=== PATIENT | male | born 1985 | race Caucasian/White ===

== ENCOUNTER 2017-01-19 18:54 | Emergency (ER) | payer OTHER ==
[~2017-01-19] VITALS: Ht 182.8 cm; Wt 163.3 kg
[~2017-01-19 18:54] MED LIST: CIPROFLOXACIN500 MG PO; CLINDAMYCIN HC300 MG PO; CYCLOBENZAPRINE10 MG PO; DAYPRO600 M1 PO; K-DUR 20MEQ20 MEQ PO; LISINOPRIL10 M1 PO; LOPRESSOR100 MG PO; METOPROLOL100 MG PO; MOTRIN800 MG PO; Motrin,Rufen800 MG PO; NAPROSYN500 MG PO; NORCO 5-325 TA1 EACH PO; ROBAXIN750 MG PO; WATER PILL
[2017-01-19] MEDS ORDERED: CLINDAMYCIN HC300 MG PO (20:28)
[2017-01-19] MEDS ORDERED: Motrin,Rufen800 MG PO (20:28)
== END 2017-01-19 22:10 | disposition home or self-care (01) ==
LOC: ED 18:54
DX: K02.9 Dental caries, unspecified (principal); K04.01 Reversible pulpitis; F17.200 Nicotine dependence, unspecified, uncomplicated; I10 Essential (primary) hypertension; Z79.899 Other long term (current) drug therapy

== ENCOUNTER 2017-06-01 20:29 | Emergency (ER) | payer OTHER ==
[~2017-06-01] VITALS: Ht 182.8 cm; Wt 145.1 kg
[2017-06-01 21:40] LABS: BILIRUBIN 2+ (NEGATIVE); BLOOD TRACE-LYSED (NEGATIVE); CLARITY SL CLOUDY (CLEAR); COLOR YELLOW (YELLOW); GLUCOSE NEGATIVE (NEGATIVE); KETONE 1+ (NEGATIVE); LEUKO ESTERASE TRACE (NEGATIVE); NITRITE NEGATIVE (NEGATIVE); UROBILINOGEN 0.2 E.U./dl (0.2-1.0)
[2017-06-01 21:47] LABS: URINE AMPHETAMINES < 1000 (1000ng/ml); URINE BARBITURATES < 200 (200ng/ml); URINE BENZODIAZEPINES < 200 (200ng/ml); URINE CANNABINOIDS (THC) < 50 (50ng/ml); URINE COCAINE < 300 (300ng/ml); URINE METHADONE < 300 (300ng/ml); URINE OPIATES < 300 (300ng/ml)
[2017-06-01 21:49] LABS: URINE PHENCYCLIDINE < 25 (25ng/ml)
[2017-06-01 21:53] LABS: BACTERIA 2+; EPITHELIAL CELLS 0-2; MUCOUS TRACE; RBC 0-2 rbc/hpf (0-2)
[2017-06-01 22:05] LABS: BASO # 0.1 10*3/uL (0.0-0.1); BASO % 0.3 % (0.0-1.0); HEMATOCRIT 48.8 % (42.0-52.0); HEMOGLOBIN 16.9 g/dl (14.0-18.0); LYMPH % 10.2 % (27.0-41.0); MEAN CELL VOLUME 91.4 fl (80.0-94.0); MEAN CORPUSCULAR HGB 31.6 pg (27.0-31.0); MEAN CORPUSCULAR HGB CONC 34.6 g/dl (33.0-37.0); MEAN PLATELET VOLUME 9.4 fl (9.6-12.3); MONO # 1.1 10*3/uL (0.1-1.0); MONO % 5.7 % (3.0-9.0); NEUT # 16.2 10*3/uL (2.3-7.9); NEUT % 83.4 % (47.0-73.0); PLATELET COUNT AUTOMATED 358 10*3/uL (130-400); RED BLOOD COUNT 5.34 10*6/uL (4.50-5.90); RED CELL DISTRI WIDTH 13.4 % (0-14.5); WHITE BLOOD COUNT 19.4 10*3/uL (4.8-10.8)
[2017-06-01 22:21] LABS: ALBUMIN 4.4 gm/dl (3.1-4.5); ALKALINE PHOSPHATASE 70 U/L (45-117); BUN 14 mg/dl (7-24); CHLORIDE 103 mmol/L (98-107); CREATININE 1.12 mg/dL (0.70-1.30); POTASSIUM 3.5 mmol/L (3.5-5.1); SGOT/AST 15 IU/L (3-35); SGPT/ALT 26 U/L (12-78); SODIUM 138 mmol/L (136-145); TOTAL PROTEIN 8.2 gm/dL (6.4-8.2)
[2017-06-01 22:29] LABS: ACETAMINOPHEN (TYLENOL) < 2.0 ug/ml (10-30); ETHYL ALCOHOL < 3.0 mg/dl (<3); THYROID STIM HORMONE (HS) 0.893 uIU/ml (0.358-4.75)
== END 2017-06-02 08:55 | disposition short-term general hospital (02) ==
LOC: ED 20:29
PROVIDERS: Emergency Medicine Emergency Medical Services
DX: R45.851 Suicidal ideations (principal); F17.200 Nicotine dependence, unspecified, uncomplicated; F41.9 Anxiety disorder, unspecified; R07.9 Chest pain, unspecified; I10 Essential (primary) hypertension; Z87.898 Personal history of other specified conditions

== ENCOUNTER 2017-11-04 12:47 | Emergency (ER) | payer MEDICAID ==
[~2017-11-04] VITALS: Ht 182.8 cm; Wt 140.6 kg
[2017-11-04 13:34] LABS: BILIRUBIN 2+ (NEGATIVE); BLOOD NEGATIVE (NEGATIVE); CLARITY CLEAR (CLEAR); COLOR YELLOW (YELLOW); GLUCOSE NEGATIVE (NEGATIVE); KETONE 1+ (NEGATIVE); LEUKO ESTERASE TRACE (NEGATIVE); NITRITE NEGATIVE (NEGATIVE); PH 5.5 (5.0-9.0); SPECIFIC GRAVITY 1.025 (1.005-1.030); UROBILINOGEN 0.2 E.U./dl (0.2-1.0)
[2017-11-04 13:36] LABS: URINE AMPHETAMINES < 1000 (1000ng/ml); URINE BARBITURATES < 200 (200ng/ml); URINE BENZODIAZEPINES < 200 (200ng/ml); URINE CANNABINOIDS (THC) < 50 (50ng/ml); URINE COCAINE < 300 (300ng/ml); URINE METHADONE < 300 (300ng/ml); URINE OPIATES < 300 (300ng/ml)
[2017-11-04 13:37] LABS: URINE PHENCYCLIDINE < 25 (25ng/ml)
[2017-11-04 13:37] LABS: BASO % 0.2 % (0.0-1.0); HEMATOCRIT 46.2 % (42.0-52.0); HEMOGLOBIN 15.9 g/dl (14.0-18.0); LYMPH # 1.2 10*3/uL (1.3-4.4); LYMPH % 13.4 % (27.0-41.0); MEAN CELL VOLUME 89.9 fl (80.0-94.0); MEAN CORPUSCULAR HGB 30.9 pg (27.0-31.0); MEAN CORPUSCULAR HGB CONC 34.4 g/dl (33.0-37.0); MEAN PLATELET VOLUME 9.3 fl (9.6-12.3); MONO # 0.6 10*3/uL (0.1-1.0); MONO % 6.3 % (3.0-9.0); NEUT % 79.8 % (47.0-73.0); PLATELET COUNT AUTOMATED 367 10*3/uL (130-400); RED BLOOD COUNT 5.14 10*6/uL (4.50-5.90); RED CELL DISTRI WIDTH 13.4 % (0-14.5); WHITE BLOOD COUNT 8.8 10*3/uL (4.8-10.8)
[2017-11-04 13:53] LABS: ACETAMINOPHEN (TYLENOL) < 2.0 ug/ml (10-30); BUN 23 mg/dl (7-24); CHLORIDE 104 mmol/L (98-107); CREATININE 1.39 mg/dL (0.70-1.30); ETHYL ALCOHOL < 3.0 mg/dl (<3); SODIUM 136 mmol/L (136-145)
[2017-11-04 14:00] LABS: RBC 0-2 rbc/hpf (0-2)
[2017-11-04 14:01] LABS: BACTERIA 2+; MUCOUS TRACE
[2017-11-04] MEDS ORDERED: ABILIFY20 MG PO (14:26)
[2017-11-04] MEDS ORDERED: WELLBUTRIN XL300 MG PO (14:26)
[2017-11-04] MEDS ORDERED: LISINOPRIL2.5 MG PO (14:26)
[2017-11-04] MEDS ORDERED: LEXAPRO20 MG PO (14:26)
[2017-11-04] MEDS ORDERED: NORVASC2.5 MG PO (14:27)
== END 2017-11-07 18:30 | disposition home health service (06) ==
LOC: ED 12:47
PROVIDERS: Emergency Medicine
DX: F32.9 Major depressive disorder, single episode, unspecified (principal); R45.851 Suicidal ideations; F41.9 Anxiety disorder, unspecified; F19.10 Other psychoactive substance abuse, uncomplicated; I10 Essential (primary) hypertension; Z79.899 Other long term (current) drug therapy

== ENCOUNTER 2017-12-28 19:06 | Emergency (ER) | payer MEDICAID ==
[~2017-12-28] VITALS: Ht 182.8 cm; Wt 145.1 kg
[~2017-12-28 19:06] MED LIST changes: +ABILIFY20 MG PO; +LEXAPRO20 MG PO; +LISINOPRIL2.5 MG PO; +NORVASC2.5 MG PO; +WELLBUTRIN XL300 MG PO
[2017-12-28] MEDS ORDERED: VIBRAMYCIN100 MG PO (19:55)
[2017-12-28] MEDS ORDERED: PREDNISONE20 M1 PO (19:55)
== END 2017-12-28 19:50 | disposition home or self-care (01) ==
LOC: ED 19:06
DX: S90.862A Insect bite (nonvenomous), left foot, initial encounter (principal); L08.9 Local infection of the skin and subcutaneous tissue, unspecified; Z79.899 Other long term (current) drug therapy; W57.XXXA Bitten or stung by nonvenomous insect and other nonvenomous arthropods, initial encounter; Y93.89 Activity, other specified; Y92.89 Other specified places as the place of occurrence of the external cause; Y99.8 Other external cause status

== ENCOUNTER → 2018-05-13 | Outpatient (CLI) | payer OTHER ==
[~2018-05-13] MED LIST changes: +PREDNISONE20 M1 PO; +VIBRAMYCIN100 MG PO
== END | disposition home or self-care (01) ==
LOC: RAD 11:52
DX: R06.02 Shortness of breath (principal); M79.89 Other specified soft tissue disorders

== ENCOUNTER 2019-10-07 10:33 | Emergency (ER) | payer OTHER ==
[~2019-10-07] VITALS: Ht 182.8 cm; Wt 181.4 kg
[2019-10-07 11:29] LABS: BASO % 0.3 % (0.0-1.0); EOS # 0.1 10*3/uL (0.0-0.4); EOS % 0.6 % (1.0-4.0); LYMPH # 1.6 10*3/uL (1.3-4.4); MEAN CORPUSCULAR HGB 31.4 pg (27.0-31.0); MEAN CORPUSCULAR HGB CONC 33.1 g/dl (33.0-37.0); MEAN PLATELET VOLUME 9.3 fl (9.6-12.3); MONO # 0.8 10*3/uL (0.1-1.0); MONO % 5.8 % (3.0-9.0); NEUT % 80.9 % (47.0-73.0); PLATELET COUNT AUTOMATED 303 10*3/uL (130-400); RED BLOOD COUNT 4.42 10*6/uL (4.50-5.90); RED CELL DISTRI WIDTH 13.5 % (0-14.5); WHITE BLOOD COUNT 13.6 10*3/uL (4.8-10.8)
[2019-10-07 11:45] LABS: ALBUMIN 3.3 gm/dl (3.1-4.5); ALKALINE PHOSPHATASE 64 U/L (45-117); BUN 19 mg/dl (7-24); CHLORIDE 106 mmol/L (98-107); CREATININE 0.93 mg/dL (0.70-1.30); POTASSIUM 4.2 mmol/L (3.5-5.1); SGOT/AST 13 IU/L (3-35); SGPT/ALT 27 U/L (12-78); SODIUM 138 mmol/L (136-145)
[2019-10-07] MEDS ORDERED: PREDNISONE20 M1 PO (12:57)
== END 2019-10-07 12:51 | disposition left against medical advice (07) ==
LOC: ED 10:33
PROVIDERS: Physician Assistant
DX: T78.3XXA Angioneurotic edema, initial encounter (principal); I10 Essential (primary) hypertension; F41.9 Anxiety disorder, unspecified; F32.9 Major depressive disorder, single episode, unspecified; F17.200 Nicotine dependence, unspecified, uncomplicated; Z79.899 Other long term (current) drug therapy; X58.XXXA Exposure to other specified factors, initial encounter; Y93.89 Activity, other specified; Y92.89 Other specified places as the place of occurrence of the external cause; Y99.8 Other external cause status

== ENCOUNTER → 2020-05-07 | Outpatient (CLI) | payer OTHER ==
[2020-05-07 09:29] LABS: BASO # 0.1 10*3/uL (0.0-0.1); BASO % 0.5 % (0.0-1.0); EOS % 0.3 % (1.0-4.0); HEMATOCRIT 43.9 % (42.0-52.0); LYMPH # 2.7 10*3/uL (1.3-4.4); MEAN PLATELET VOLUME 9.2 fl (9.6-12.3); MONO # 0.7 10*3/uL (0.1-1.0); NEUT # 8.4 10*3/uL (2.3-7.9); NEUT % 69.9 % (47.0-73.0); PLATELET COUNT AUTOMATED 318 10*3/uL (130-400); RED BLOOD COUNT 4.67 10*6/uL (4.50-5.90); RED CELL DISTRI WIDTH 13.4 % (0-14.5); WHITE BLOOD COUNT 11.9 10*3/uL (4.8-10.8)
[2020-05-07 10:00] LABS: ALBUMIN 3.5 gm/dl (3.1-4.5); CHLORIDE 105 mmol/L (98-107); POTASSIUM 4.2 mmol/L (3.5-5.1); SODIUM 138 mmol/L (136-145)
[2020-05-07 10:07] LABS: ALKALINE PHOSPHATASE 69 U/L (45-117); BUN 18 mg/dl (7-24); CHOLESTEROL 171 mg/dL (<200); HDL CHOLESTEROL 25 mg/dl (40-60); SGOT/AST 17 IU/L (3-35); SGPT/ALT 30 U/L (12-78); TOTAL PROTEIN 7.5 gm/dL (6.4-8.2); TRIGLYCERIDES 759 mg/dl (<150)
== END | disposition home or self-care (01) ==
LOC: LAB 09:13
PROVIDERS: ATTEND Nurse Practitioner Family
DX: M25.461 Effusion, right knee (principal); I10 Essential (primary) hypertension; M79.89 Other specified soft tissue disorders; E78.1 Pure hyperglyceridemia; Z13.21 Encounter for screening for nutritional disorder; Z13.228 Encounter for screening for other metabolic disorders

== ENCOUNTER 2020-11-15 10:42 | Emergency (ER) | payer OTHER ==
[~2020-11-15] VITALS: Ht 182.8 cm; Wt 181.4 kg
[2020-11-15] MEDS ORDERED: ZESTORETIC 20-1 EACH PO (10:58)
[2020-11-15] MEDS ORDERED: NAPROXEN250 MG PO (12:50)
[2020-11-15] MEDS ORDERED: TYLENOL325 M1 PO (12:50)
[2020-11-15] MEDS ORDERED: CYCLOBENZAPRINE10 MG PO (12:50)
== END 2020-11-15 12:59 | disposition home or self-care (01) ==
LOC: ED 10:42
DX: I82.401 Acute embolism and thrombosis of unspecified deep veins of right lower extremity (principal); M79.661 Pain in right lower leg; Z79.899 Other long term (current) drug therapy

== ENCOUNTER 2021-01-29 16:07 | Emergency (ER) | payer OTHER ==
[~2021-01-29] VITALS: Ht 182.8 cm; Wt 188.2 kg
[~2021-01-29 16:07] MED LIST changes: +NAPROXEN250 MG PO; +TYLENOL325 M1 PO; +ZESTORETIC 20-1 EACH PO
[2021-01-29 18:07] LABS: HEMATOCRIT 35.6 % (42.0-52.0); MEAN CELL VOLUME 94.4 fl (80.0-94.0); MEAN CORPUSCULAR HGB 35.3 pg (27.0-31.0); MEAN PLATELET VOLUME 11.3 fl (9.6-12.3); PLATELET COUNT AUTOMATED 164 10*3/uL (130-400); RED BLOOD COUNT 3.77 10*6/uL (4.50-5.90); RED CELL DISTRI WIDTH 13.8 % (0-14.5); WHITE BLOOD COUNT 7.6 10*3/uL (4.8-10.8)
[2021-01-29 18:16] LABS: MEAN CORPUSCULAR HGB CONC 37.4 g/dl (33.0-37.0)
[2021-01-29 18:20] LABS: ATYPICAL LYMPHS 8 % (0-0); BASOPHILS 1 % (0-1); PLATELET SUFFICIENCY NORMAL (NORMAL); TOTAL CELLS COUNTED 100 #CELLS
[2021-01-29 18:21] LABS: OVALOCYTES FEW
[2021-01-29 18:46] LABS: ALBUMIN 3.2 gm/dl (3.1-4.5); ALKALINE PHOSPHATASE 89 U/L (45-117); BUN 16 mg/dl (7-24); CHLORIDE 96 mmol/L (98-107); CREATININE 1.01 mg/dL (0.70-1.30); POTASSIUM 5.7 mmol/L (3.5-5.1); SGOT/AST 67 IU/L (3-35); SODIUM 130 mmol/L (136-145); TOTAL PROTEIN 8.2 gm/dL (6.4-8.2)
[2021-01-29 19:14] LABS: SGPT/ALT 42 U/L (12-78)
[2021-01-29] MEDS ORDERED: METFORMIN HYDR500 MG PO (19:28)
== END 2021-01-30 02:10 | disposition home or self-care (01) ==
LOC: ED 16:07
PROVIDERS: Student in an Organized Health Care Education/Training Program
DX: E11.9 Type 2 diabetes mellitus without complications (principal); Z79.899 Other long term (current) drug therapy

== ENCOUNTER 2022-03-30 08:07 | Emergency (ER) | payer OTHER ==
[~2022-03-30] VITALS: Wt 167.8 kg
[~2022-03-30 08:07] MED LIST changes: +METFORMIN HYDR500 MG PO
[2022-03-30] MEDS ORDERED: TYLENOL325 M1 PO (09:38)
[2022-03-30] MEDS ORDERED: NAPROXEN250 MG PO (09:38)
== END 2022-03-30 09:45 | disposition home or self-care (01) ==
LOC: ED 08:07
DX: S89.92XA Unspecified injury of left lower leg, initial encounter (principal); E11.9 Type 2 diabetes mellitus without complications; Z79.899 Other long term (current) drug therapy; X50.1XXA Overexertion from prolonged static or awkward postures, initial encounter; Y93.89 Activity, other specified; Y92.89 Other specified places as the place of occurrence of the external cause; Y99.8 Other external cause status

== ENCOUNTER 2024-02-15 06:56 | Inpatient (IN) | payer OTHER ==
[~2024-02-15] VITALS: Ht 182.8 cm; Wt 156.5 kg
[2024-02-15] VITALS (8 sets, daily range): BP systolic 86–133; BP diastolic 44–84
[2024-02-15] MEDS ORDERED: SODIUM CHLORIDE 0.9% 500 ML IV ONE (07:15)
[2024-02-15 07:27] LABS: BASO # 0.1 10*3/uL (0.0-0.1); BASO % 0.3 % (0.0-1.0); EOS % 0.1 % (1.0-4.0); HEMATOCRIT 39.5 % (42.0-52.0); LYMPH # 1.5 10*3/uL (1.3-4.4); LYMPH % 8.2 % (27.0-41.0); MEAN CELL VOLUME 97.5 fl (80.0-94.0); MEAN CORPUSCULAR HGB 33.6 pg (27.0-31.0); MEAN CORPUSCULAR HGB CONC 34.4 g/dl (33.0-37.0); MEAN PLATELET VOLUME 9.8 fl (9.6-12.3); MONO # 0.7 10*3/uL (0.1-1.0); MONO % 3.9 % (3.0-9.0); NEUT # 15.6 10*3/uL (2.3-7.9); PLATELET COUNT AUTOMATED 264 10*3/uL (130-400); RED BLOOD COUNT 4.05 10*6/uL (4.50-5.90); RED CELL DISTRI WIDTH 13.4 % (0-14.5)
[2024-02-15 07:31] LABS: VENOUS BLOOD GAS O2 SAT 62.8 % (60.0-85.0)
[2024-02-15 08:05] LABS: BUN 36 mg/dl (9-23); CHLORIDE 97 mmol/L (98-107); POTASSIUM 4.8 mmol/L (3.4-5.1); SGPT/ALT 113 U/L (5-49); TOTAL PROTEIN 6.2 gm/dL (6.0-8.0)
[2024-02-15 08:07] LABS: ALKALINE PHOSPHATASE 74 U/L (46-116)
[2024-02-15] MEDS ORDERED: INSULIN REGULAR IN 0.9 % NACL 100 ML IV SCH ×2 (08:40→11:25)
[2024-02-15] MEDS ORDERED: INSULIN REGULAR, HUMAN 1 UNIT/0.01 ML IV ONE (08:40)
[2024-02-15] MEDS ORDERED: SODIUM CHLORIDE 0.9% 1,000 ML IV ONE (08:40)
[2024-02-15] MEDS ORDERED: Magnesium Hydroxide 30 ML UDC PO PRN (09:40)
[2024-02-15] MEDS ORDERED: ACETAMINOPHEN 325 MG TAB PO PRN (09:40)
[2024-02-15] MEDS ORDERED: BISACODYL 10 MG SUPP R PRN (09:40)
[2024-02-15] MEDS ORDERED: Acetaminophen/Hydrocodone 5 MG/325 MG TABLET PO PRN (09:40)
[2024-02-15] MEDS ORDERED: BISACODYL 5 MG TAB PO PRN (09:40)
[2024-02-15] MEDS ORDERED: Ondansetron Hydrochloride 4 MG/2 ML VIAL IV PRN (09:40)
[2024-02-15] MEDS ORDERED: ACETAMINOPHEN 650 MG SUPP R PRN (09:40)
[2024-02-15] MEDS ORDERED: Enoxaparin Sodium 40 MG/0.4 ML SYR SC SCH (10:00)
[2024-02-15] MEDS ORDERED: SODIUM CHLORIDE 0.9% 1,000 ML IV SCH (11:25)
[2024-02-15] MEDS ORDERED: POTASSIUM CHLORIDE 20 MEQ TAB PO PRN (11:25)
[2024-02-15] MEDS ORDERED: POTASSIUM CHLORIDE 20 MEQ/100 ML BAG IV PRN (11:25)
[2024-02-15] MEDS ORDERED: ZESTORETIC 20-1 EAC1 PO (11:41)
[2024-02-15] MEDS ORDERED: CYMBALTA60 MG PO (11:41)
[2024-02-15 12:16] LABS: BUN 32 mg/dl (9-23); CHLORIDE 103 mmol/L (98-107); POTASSIUM 4.6 mmol/L (3.4-5.1)
[2024-02-15 12:19] LABS: CPK 101 U/L (34-171)
[2024-02-15] MEDS ORDERED: ATORVASTATIN CALCIUM 40 MG TABLET PO SCH (12:40)
[2024-02-15] MEDS ORDERED: ASPIRIN 325 MG TAB PO ONE (12:40)
[2024-02-15] MEDS ORDERED: DEXTROSE 10 % IN WATER 250 ML IV PRN (13:00)
[2024-02-15 16:14] LABS: BUN 24 mg/dl (9-23)
[2024-02-15] MEDS ORDERED: CELEXA40 MG PO (16:20)
[2024-02-15] MEDS ORDERED: INSULIN LISPRO 1 UNIT/0.01 ML SQ SCH (16:30)
[2024-02-15 17:05] LABS: CHLORIDE 109 mmol/L (98-107)
[2024-02-15 17:05] LABS: BILIRUBIN Negative (Negative); BLOOD Negative (Negative); CLARITY Clear (Clear); COLOR Yellow (Yellow); GLUCOSE 2+ (Negative); KETONE Negative (Negative); LEUKO ESTERASE Negative (Negative); NITRITE Negative (Negative); PH 5.5 (4.5-8.0); UROBILINOGEN 0.2 E.U./dl (0.0-1.0)
[2024-02-15 17:06] LABS: POTASSIUM 3.6 mmol/L (3.4-5.1)
[2024-02-15 17:45] LABS: BACTERIA TRACE; EPITHELIAL CELLS 0-2; WBC 0-2 wbc/hpf (0-5)
[2024-02-15] MEDS ORDERED: Metoprolol Tartrate 25 MG TAB PO SCH (22:00)
[2024-02-15] MEDS ORDERED: Insulin Glargine, Recombinan 1 UNIT/0.01 ML SC SCH (22:00)
[2024-02-15 22:21] LABS: BUN 28 mg/dl (9-23); CHLORIDE 102 mmol/L (98-107); POTASSIUM 4.2 mmol/L (3.4-5.1)
[2024-02-16] VITALS: BP 120/68
[2024-02-16 04:00] VITALS: BP 99/46
[2024-02-16 05:48] LABS: VITAMIN D, 25-HYDROXY 11.6 ng/mL (30-100)
[2024-02-16 06:25] LABS: BASO % 0.4 % (0.0-1.0); EOS # 0.1 10*3/uL (0.0-0.4); EOS % 0.9 % (1.0-4.0); HEMATOCRIT 35.6 % (42.0-52.0); LYMPH # 2.7 10*3/uL (1.3-4.4); LYMPH % 28.5 % (27.0-41.0); MEAN CELL VOLUME 99.2 fl (80.0-94.0); MEAN CORPUSCULAR HGB 32.9 pg (27.0-31.0); MEAN CORPUSCULAR HGB CONC 33.1 g/dl (33.0-37.0); MEAN PLATELET VOLUME 10.1 fl (9.6-12.3); MONO # 0.6 10*3/uL (0.1-1.0); MONO % 6.2 % (3.0-9.0); NEUT # 5.9 10*3/uL (2.3-7.9); NEUT % 63.7 % (47.0-73.0); PLATELET COUNT AUTOMATED 238 10*3/uL (130-400); RED BLOOD COUNT 3.59 10*6/uL (4.50-5.90); RED CELL DISTRI WIDTH 13.4 % (0-14.5); WHITE BLOOD COUNT 9.3 10*3/uL (4.8-10.8)
[2024-02-16 06:42] LABS: BUN 22 mg/dl (9-23); CHLORIDE 102 mmol/L (98-107); POTASSIUM 4.4 mmol/L (3.4-5.1)
[2024-02-16 07:07] LABS: HBSAG Negative (Negative); HEP B CORE AB, IGM Negative (Negative); HEPATITIS C ANTIBODY Non Reactive (Non Reactive)
[2024-02-16 07:11] LABS: CHOLESTEROL 331 mg/dL (<200); TRIGLYCERIDES 2319 mg/dl (<150)
[2024-02-16 08:00] VITALS: BP 140/80
[2024-02-16] MEDS ORDERED: Phosphorus/Potassium 1.45 GM PACKET PO SCH (08:00)
[2024-02-16 09:52] LABS: ABG BASE EXCESS 3.8 mmol/L (-2.0-3.0); ABG O2 SATURATION 95.1 % (94.0-98.0); ARTERIAL BLOOD GAS PH 7.423 (7.350-7.450); ARTERIAL BLOOD GAS PO2 72.2 mmHg (83.0-108.0)
[2024-02-16] MEDS ORDERED: Duloxetine Hydrochloride 60 MG CAP PO SCH (10:00)
[2024-02-16] MEDS ORDERED: ASPIRIN ENTERIC COATED 81 MG TAB PO SCH (10:00)
[2024-02-16] MEDS ORDERED: PERFLUTREN PROTEIN-A MICROSPHR 3 ML VIAL IV ONE (12:11)
[2024-02-16 16:00] VITALS: BP 134/75
[2024-02-16 20:00] VITALS: BP 134/84
[2024-02-17] VITALS: BP 117/61
[2024-02-17 06:47] LABS: BASO % 0.5 % (0.0-1.0); EOS # 0.2 10*3/uL (0.0-0.4); EOS % 2.8 % (1.0-4.0); HEMATOCRIT 36.5 % (42.0-52.0); LYMPH # 2.5 10*3/uL (1.3-4.4); LYMPH % 28.4 % (27.0-41.0); MEAN CELL VOLUME 96.3 fl (80.0-94.0); MEAN CORPUSCULAR HGB 32.5 pg (27.0-31.0); MEAN CORPUSCULAR HGB CONC 33.7 g/dl (33.0-37.0); MEAN PLATELET VOLUME 10.4 fl (9.6-12.3); MONO # 0.6 10*3/uL (0.1-1.0); MONO % 7.4 % (3.0-9.0); NEUT # 5.3 10*3/uL (2.3-7.9); NEUT % 60.7 % (47.0-73.0); PLATELET COUNT AUTOMATED 252 10*3/uL (130-400); RED BLOOD COUNT 3.79 10*6/uL (4.50-5.90); RED CELL DISTRI WIDTH 13.2 % (0-14.5); WHITE BLOOD COUNT 8.7 10*3/uL (4.8-10.8)
[2024-02-17 06:57] LABS: ALKALINE PHOSPHATASE 80 U/L (46-116); BUN 15 mg/dl (9-23); CHLORIDE 105 mmol/L (98-107); POTASSIUM 4.3 mmol/L (3.4-5.1); SGPT/ALT 111 U/L (5-49); TOTAL PROTEIN 5.8 gm/dL (6.0-8.0)
[2024-02-17 08:00] VITALS: BP 119/69
[2024-02-17] MEDS ORDERED: ATORVASTATIN CA40 M1 PO (10:45)
[2024-02-17] MEDS ORDERED: HUMALOG100 UNIT/1 SC (10:45)
[2024-02-17] MEDS ORDERED: TEST STRIPS1 EACH MC (10:45)
[2024-02-17] MEDS ORDERED: LANTUS SOL100 UNIT/1 SC (10:45)
== END 2024-02-17 11:35 | disposition home or self-care (01) | DRG 917 ==
LOC: ED 06:56 → ICCU 09:48 → EDHOLD 09:48 → ICCU 09:56
PROVIDERS: Emergency Medicine; Student in an Organized Health Care Education/Training Program; ADMIT Student in an Organized Health Care Education/Training Program; ATTEND Student in an Organized Health Care Education/Training Program
DX: T40.601A Poisoning by unspecified narcotics, accidental (unintentional), initial encounter (principal); I21.A1 Myocardial infarction type 2; J96.01 Acute respiratory failure with hypoxia; N17.0 Acute kidney failure with tubular necrosis; R65.10 Systemic inflammatory response syndrome (SIRS) of non-infectious origin without acute organ dysfunction; E87.1 Hypo-osmolality and hyponatremia; E87.29 Other acidosis; Z68.42 Body mass index [BMI] 45.0-49.9, adult; D53.9 Nutritional anemia, unspecified; F32.A Depression, unspecified; I95.9 Hypotension, unspecified; E66.01 Morbid (severe) obesity due to excess calories; D72.829 Elevated white blood cell count, unspecified; E11.65 Type 2 diabetes mellitus with hyperglycemia; R74.01 Elevation of levels of liver transaminase levels; E11.69 Type 2 diabetes mellitus with other specified complication; F17.210 Nicotine dependence, cigarettes, uncomplicated; G47.33 Obstructive sleep apnea (adult) (pediatric); Z83.3 Family history of diabetes mellitus; S39.012S Strain of muscle, fascia and tendon of lower back, sequela; Z79.4 Long term (current) use of insulin; Y92.89 Other specified places as the place of occurrence of the external cause